=== PATIENT | female | born 1955 | race Caucasian/White ===

== ENCOUNTER 2016-09-24 10:11 | Inpatient (IN) | payer MEDICARE, OTHER ==
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
--- NOTE | ~2016-09-24 | US85 ---
[facility] A Service of [facility] RADIOLOGY TEXT RESULTS PATIENT: LALA PALMER LOCATION: C2A 239 : [birth year] UNIT #: [id number] AGE: [address]: Paola Esqueda MD SEX: F ORDER DR: [id number] [facility] [address] [place], [place] [address] [id number] I MR#: [id number] Acc #: [id number] NAME: LALA PALMER : 1955 SEX: F STUDY DATE/TIME: 09/24/2016 11:57 UNIT: CEDOF ROOM: 19777 STUDY DESCRIPTION: LE Veins Unilat or Ltd Stdy Attending Physician: Marlene Knight M.D. Ordering Physician: Brett Travis M.D. Primary Care Physician: Ralph Hughes M.D. MEDICAL IMAGING REPORT This report is preliminary unless electronic signature is present EXAM Left lower extremity venous ultrasound 09/24/2016 HISTORY Right lower extremity pain, swelling, redness for 2 weeks. No prior history of DVT or SVT. TECHNIQUE Venous ultrasound examination of the right lower extremity was performed using grayscale, spectral Doppler and color flow Doppler imaging. FINDINGS The examination is negative. There is no evidence of right lower extremity deep venous thrombus from the groin to the lower calf. Visualized greater saphenous vein is also patent. IMPRESSION Negative examination. No evidence of right lower extremity deep venous thrombosis. Dictated by... Mina Vasquez M.D. THIS IS AN ELECTRONICALLY VERIFIED REPORT Mina Vasquez M.D. at 09/27/2016 8:26 AM DONIAT/aurelia TD: 09/24/2016 14:36 JOB #: [id number] MEDICAL IMAGING REPORT [facility] A Service [facility] RADIOLOGY TEXT RESULTS PATIENT: LALA PALMER LOCATION: C2A 239 : [birth year] UNIT #: [id number] AGE: [address]: Paola Esqueda MD SEX: F ORDER DR: Page 1 of 1 COPY
--- NOTE | ~2016-09-24 | CR127 ---
[facility] A Service of [facility] RADIOLOGY TEXT RESULTS PATIENT: LALA PALMER LOCATION: A 239-01 : [birth year] UNIT #: [id number] AGE: [address]: Paola Esqueda MD SEX: F ORDER DR: [id number] [facility] [address] [place], [place] [address] [id number] E MR#: [id number] Acc #: [id number] NAME: LALA PALMER : 1955 SEX: F STUDY DATE/TIME: 09/24/2016 11:14 UNIT: [facility] ROOM: STUDY DESCRIPTION: CR Foot Complete Min 3 View Rt Attending Physician: Brett Travis M.D. Ordering Physician: Brett Travis M.D. Primary Care Physician: Ralph Hughes M.D. MEDICAL IMAGING REPORT This report is preliminary unless electronic signature is present EXAM Right foot series 09/24/2016 HISTORY Pain, swelling entire foot, second, third digit, oozing 2 weeks duration. FINDINGS AP, lateral and oblique radiographs of the right foot are presented. Marked underlying bony demineralization. No fracture or traumatic malalignment. No erosive or proliferative changes of bone. No bony destructive process is seen. There is marked soft tissue swelling most pronounced along the mid to distal foot plantar and dorsal aspect dorsal greater than plantar. Less prominent soft tissue swelling in the more proximal foot and around the ankle. There is no subcutaneous air. There are scattered soft tissue calcifications. Dictated by... Mina Vasquez M.D. THIS IS AN ELECTRONICALLY VERIFIED REPORT Mina Vasquez M.D. at 09/27/2016 8:26 AM DONITA/evert TD: 09/24/2016 12:50 JOB #: [id number] MEDICAL IMAGING REPORT Page 1 of 1 COPY
--- NOTE | ~2016-09-24 | DS ---
Unit #: [id number] #: [id number] Patient: LALA PALMER [id number] [address] [address] [id number] I MR#: [id number] NAME: LALA PALMER ROOM: 239 Age: 61 Sex: F Admission Date: 09/24/2016 : 1955 Discharge Date: 09/27/2016 Attending Physician: Paola Esqueda M.D. Primary Care Physician: Ralph Hughes M.D. DISCHARGE SUMMARY DISCHARGE DIAGNOSES 1. Right foot cellulitis. 2. History of multiple right hip surgeries. 3. History of breast cancer. 4. Nephrolithiasis, status post lithotripsy. 5. Former smoker. 6. Mild chronic iron deficiency anemia. CONSULTANTS Dr. Allison. PROCEDURES PERFORMED None. DIAGNOSTIC DATA IMAGING: Ultrasound negative for DVT. X-ray of the foot shows no erosive proliferative changes of bone. No fracture. No subcutaneous air. LABORATORY: Sodium 139, potassium 4.3, creatinine 0.5, white blood cell count 7.0, hemoglobin 11.9, platelets 330. Blood cultures negative. ALLERGIES Morphine. DISCHARGE MEDICATIONS 1. Bactroban applied topically q.8 h. 2. Claritin 10 mg daily. 3. BuSpar 10 mg p.o. b.i.d. 4. Nicotine 7 mg transdermal in the morning. 5. Ditropan 10 mg b.i.d. 6. Ferrous gluconate 324 on Saturday, Saturday and Saturday. 7. Hibiclens applied topically q.8 h. 8. Multivitamin 1 tablet daily. 9. Aspirin 81 mg daily. 10. Lortab 5 mg q.4-6 h. p.r.n. pain. 11. Tums 500 mg p.o. b.i.d. 12. Keflex 500 mg p.o. t.i.d. for 7 more days. 13. Collagenase 30 g ointment applied along with Bactroban. HOSPITAL COURSE The patient is a 61-year-old admitted because of right foot swelling Unit #: [id number] #: [id number] Patient: LALA PALMER Right foot cellulitis: With tiny small ulcers on the dorsum of the foot in between the toes. The patient was seen by surgeon. Cultures none from wound. Blood cultures negative. The patient was given IV vancomycin and Zosyn. Currently the patient is afebrile. Swelling got better. Continue with Keflex for seven more days. Chronic anemia: Continue with iron pills. History of right hip infection: Following with Dr. Da Silva. She was supposed to be on clindamycin, which she was not on since last hospitalization from 07/2016. Follow with Dr. Da Silva as an outpatient for followup on that. DISPOSITION Discharge home with home health. FOLLOWUP 1. Follow up with primary care physician in one week time. 2. Dressing changes as per LSA. Needs b.i.d. 3. Follow up with wound clinic in 7-10 days time. Dictated by... Hanny Liao/alma TD: 09/27/2016 14:27 JOB #: [id number] CC: Ralph Hughes M.D. DISCHARGE SUMMARY Page 1 of 1 X Paola Esqueda MD X DISCHARGE SUMMARY
[~2016-09-24 10:11] MED LIST: ASPIRIN EC81 M1 PO; BAYER CHEWABLE81 MG PO; BUSPAR5 M1 PO; BUSPIRONE HCL10 M1 PO; CAL-MAG TABLET1 EACH PO; CALCIUM 500 + D1 TAB PO; CALCIUM 500 +1 EAC1 PO; CLARITIN10 M3 PO; COLACE50 MG PO; DETROL LA PO; DITROPAN XL5 M2 PO; DOCUSATE SODIU100 MG PO; FERRO-TIME325 MG PO; FOSAMAX70 MG PO; NICOTINE TRANSD21 MG EXT; NORCO1 TAB 10/3 PO; PREMPRO 0.45/1.1 TAB PO; ROBAXIN 750750 M1 DOB; ROBAXIN PO; TUMS500 M1 DOB; VICODIN 5/500 T1 TAB PO; [UNRECOGNIZED DRUG - OTHER] PO; [UNRECOGNIZED DRUG - OTHER] PO
[2016-09-24 11:49] LABS: BASOPHIL# 0.1 X10e3 (0-0.3); EOSINOPHIL# 0.3 X10e3 (0-0.7); EOSINOPHIL% 4.9 % (0.0-7.0); HEMATOCRIT 42.3 % (35.0-45.0); HEMOGLOBIN 13.7 gm/dL (12.0-16.0); LYMPHOCYTE# 1.7 X10e3 (1.0-3.5); LYMPHOCYTE% 29.5 % (17.0-45.0); MEAN CELL VOLUME 88.7 FL (83-96); MEAN CORPUSCULAR HEMOGLOBIN 28.6 PG (28-34); MEAN CORPUSCULAR HGB CONC 32.3 g/dL (30-36); MEAN PLATELET VOLUME 7.8 FL (6.5-11.5); MONOCYTE# 0.6 X10e3 (0-1.0); MONOCYTE% 10.9 % (3.0-12.0); NEUTROPHIL% 52.7 % (40-75); PLATELET COUNT 369 X10e3 (140-420); RED BLOOD COUNT 4.77 X10e (3.90-5.30); RED CELL DISTRIBUTION WIDTH 14.7 % (11.0-15.5); WHITE BLOOD COUNT 5.7 X10e3 (4.0-10.5)
[2016-09-24 11:54] LABS: DIFF IND NO
[2016-09-24 12:18] LABS: ALBUMIN SERUM 4.1 g/dL (3.5-5.0); ALKALINE PHOSPHATASE 69 U/L (32-92); ALT (SGPT) 21 U/L (10-40); AST (SGOT) 23 U/L (10-42); BILIRUBIN,TOTAL 0.9 mg/dL (0.2-2.0); BLOOD UREA NITROGEN 13 mg/dL (9-23); CARBON DIOXIDE 28 mmol/L (22-31); CHLORIDE 107 mmol/L (100-111); CREATININE SERUM 0.5 mg/dL (0.6-1.4); GLOM FILT RATE Estimated 105.2 mL/min (>60); GLUCOSE FASTING 84 mg/dL (70-110); POTASSIUM 3.6 mmol/L (3.5-5.1); PROTEIN TOTAL SERUM 7.1 g/dL (6.0-8.3); SODIUM 141 mmol/L (135-145)
[2016-09-24 12:19] LABS: BILIRUBIN, DIRECT <0.1 mg/dL (0.0-0.2); BILIRUBIN,INDIRECT 0.8 mg/dL (0.0-0.9)
[2016-09-24] MEDS ORDERED: CLARITIN10 M3 PO (14:42)
[2016-09-24] MEDS ORDERED: HYDROCODON-ACE1 EAC7 PO (14:43)
[2016-09-24] MEDS ORDERED: BUSPIRONE HCL10 MG PO (14:43)
[2016-09-24] MEDS ORDERED: DITROPAN5 MG PO (14:43)
[2016-09-24] MEDS ORDERED: TUMS500 MG PO (14:44)
[2016-09-24] MEDS ORDERED: ASPIRIN81 M2 PO (14:44)
[2016-09-24] MEDS ORDERED: CEROVITE SENIO1 EACH PO (14:45)
[2016-09-24] MEDS ORDERED: PATIENT'S PHARMACY (14:45)
[2016-09-24] MEDS ORDERED: MULTIVITAMINS1 EAC3 PO (14:45)
[2016-09-24] MEDS ORDERED: FERRO-TIME325 MG PO (14:45)
[2016-09-25 06:20] LABS: HEMATOCRIT 36.5 % (35.0-45.0); MEAN CELL VOLUME 88.9 FL (83-96); MEAN CORPUSCULAR HEMOGLOBIN 28.4 PG (28-34); MEAN PLATELET VOLUME 7.6 FL (6.5-11.5); RED BLOOD COUNT 4.1 X10e (3.90-5.30); RED CELL DISTRIBUTION WIDTH 14.7 % (11.0-15.5); WHITE BLOOD COUNT 5.9 X10e3 (4.0-10.5)
[2016-09-25 06:42] LABS: HEMOGLOBIN 11.7 gm/dL (12.0-16.0)
[2016-09-25 06:49] LABS: ALBUMIN SERUM 3.1 g/dL (3.5-5.0); BILIRUBIN,TOTAL 0.4 mg/dL (0.2-2.0); CALCIUM SERUM 8.1 mg/dL (8.4-10.2); CREATININE SERUM 0.5 mg/dL (0.6-1.4); GLOM FILT RATE Estimated 105.2 mL/min (>60); POTASSIUM 3.7 mmol/L (3.5-5.1); PROTEIN TOTAL SERUM 5.3 g/dL (6.0-8.3)
[2016-09-26 05:21] LABS: HEMATOCRIT 35.8 % (35.0-45.0); HEMOGLOBIN 11.6 gm/dL (12.0-16.0); MEAN CELL VOLUME 88.4 FL (83-96); MEAN CORPUSCULAR HEMOGLOBIN 28.8 PG (28-34); MEAN CORPUSCULAR HGB CONC 32.5 g/dL (30-36); MEAN PLATELET VOLUME 8.1 FL (6.5-11.5); RED BLOOD COUNT 4.05 X10e (3.90-5.30); RED CELL DISTRIBUTION WIDTH 14.6 % (11.0-15.5); WHITE BLOOD COUNT 6.5 X10e3 (4.0-10.5)
[2016-09-26 05:30] LABS: ALBUMIN SERUM 3.1 g/dL (3.5-5.0); BILIRUBIN,TOTAL 0.4 mg/dL (0.2-2.0); CALCIUM SERUM 8.5 mg/dL (8.4-10.2); CREATININE SERUM 0.5 mg/dL (0.6-1.4); GLOM FILT RATE Estimated 105.2 mL/min (>60); POTASSIUM 4.2 mmol/L (3.5-5.1); PROTEIN TOTAL SERUM 5.5 g/dL (6.0-8.3)
[2016-09-27 06:09] LABS: HEMATOCRIT 36.8 % (35.0-45.0); HEMOGLOBIN 11.9 gm/dL (12.0-16.0); MEAN CELL VOLUME 89.1 FL (83-96); MEAN CORPUSCULAR HEMOGLOBIN 28.8 PG (28-34); MEAN CORPUSCULAR HGB CONC 32.4 g/dL (30-36); MEAN PLATELET VOLUME 7.9 FL (6.5-11.5); RED BLOOD COUNT 4.13 X10e (3.90-5.30); RED CELL DISTRIBUTION WIDTH 14.6 % (11.0-15.5)
[2016-09-27 06:39] LABS: CALCIUM SERUM 8.8 mg/dL (8.4-10.2); CREATININE SERUM 0.5 mg/dL (0.6-1.4); GLOM FILT RATE Estimated 105.2 mL/min (>60); POTASSIUM 4.3 mmol/L (3.5-5.1)
[2016-09-27] MEDS ORDERED: TUMS500 MG PO (16:57)
[2016-09-27] MEDS ORDERED: VICODIN PO (16:57)
[2016-09-27] MEDS ORDERED: KEFLEX500 M1 PO (16:58)
[2016-09-27] MEDS ORDERED: NICOTINE1 EAC1 TD (17:00)
== END 2016-09-27 21:11 | disposition home health service (06) | DRG 603 ==
LOC: CED 10:11 → CEDOF 14:00 → C2A 14:00 → CEDOF 14:04 → CED 14:04 → C2A 20:37
PROVIDERS: Emergency Medicine; Family Medicine; Internal Medicine
DX: L03.115 Cellulitis of right lower limb (principal); L97.519 Non-pressure chronic ulcer of other part of right foot with unspecified severity; Z85.3 Personal history of malignant neoplasm of breast; Z87.442 Personal history of urinary calculi; Z90.49 Acquired absence of other specified parts of digestive tract; Z90.81 Acquired absence of spleen; Z87.891 Personal history of nicotine dependence; Z82.49 Family history of ischemic heart disease and other diseases of the circulatory system; M21.371 Foot drop, right foot; D50.9 Iron deficiency anemia, unspecified
CPT/HCPCS: 36415; 73630; 80048; 80053; 80076; 80202; 85025; 85027; 85652; 87040; 93971; 96365; 96367; 97162; 97166; 99285; C9113; G8978-GP; G8979-GP; G8980-GP; G8987-GO; G8988-GO; G8989-GO; J2543; J3370